=== PATIENT | female | born 1965 | race Caucasian/White ===

== ENCOUNTER 2020-07-31 15:40 | Outpatient (CLI) | payer OTHER, SELFPAY ==
--- NOTE | ~2020-07-31 | XR_ITS ---
EXAMINATION: XR chest 2V DATE: 07/31/2020 16:00 INDICATION: Shortness of breath. COVID-19 positive. TECHNIQUE: Frontal and lateral views of the chest were obtained. COMPARISON: None. FINDINGS: The chest demonstrates clear lungs without pneumonia, pleural effusion, or pneumothorax. Th e heart size is normal. There are prominent paracardial fat pads. IMPRESSION: 1. No acute cardiopulmonary disease. Reviewed, dictated and finalized at location A. E PRUNER
== END 2020-07-31 15:41 | disposition home or self-care (01) ==
LOC: CHSIMG 15:44
PROVIDERS: PCP Nurse Practitioner; Visit Provider Nurse Practitioner
DX: U07.1 COVID-19 (principal)
CPT/HCPCS: 71046

== ENCOUNTER 2021-02-16 16:22 | Emergency (ER) | payer OTHER, SELFPAY ==
--- NOTE | ~2021-02-16 | XR_ITS ---
EXAMINATION: XR wrist RT 2V DATE: 02/16/2021 17:04 INDICATION: Right wrist pain. TECHNIQUE: 2 views of right wrist were obtained. COMPARISON: None. FINDINGS: Bone alignment is normal. There is a bone fragment dorsal to the proximal carpal row. There is mild osteoarthritis of first carpometacarpal joint and second metacarpophalangeal joint. IMPRESSION: 1. Bone fragment dorsal to the proximal carpal row, which may be an age-indeterminate avulsion fractu re of dorsal pole of triquetrum. 2. Mild polyarticular osteoarthritis. Reviewed, dictated and finalized at location A. IMPRESSION: 1. Bone fragment dorsal to the proximal carpal row, which may be an age-indeter minate avulsion fracture of dorsal pole of triquetrum. 2. Mild polyarticular osteoarthritis.
--- NOTE | ~2021-02-16 | XR_ITS ---
EXAMINATION: XR wrist LT 2V DATE: 02/16/2021 17:04 INDICATION: Left wrist pain. TECHNIQUE: 2 views of left wrist were obtained. COMPARISON: None. FINDINGS: Bone alignment is normal. There is a bone fragment dorsal to the proximal carpal row. There is mild osteoarthritis of first carpometacarpal joint. IMPRESSION: 1. Bone fragment dorsal to the proximal carpal row which may be an age-indeterminate avulsion fractur e of dorsal pole of triquetrum. 2. Mild osteoarthritis of first carpometacarpal joint. Reviewed, dictated and finalized at location A. IMPRESSION: 1. Bone fragment dorsal to the proximal carpal row which may be an age-indeterm inate avulsion fracture of dorsal pole of triquetrum. 2. Mild osteoarthritis of first carpometacarpal joint.
--- NOTE | ~2021-02-16 | XR_ITS ---
EXAMINATION: XR elbow RT 2V DATE: 02/16/2021 17:03 INDICATION: Right elbow pain. TECHNIQUE: 2 views of right elbow were obtained. COMPARISON: None. FINDINGS: There is a fracture of radial head with up to 1 mm impaction of the lateral 40% of the blaine cular surface. Joint spaces are otherwise normal. There is an enthesophyte at medial humeral epicondy le. There is an elbow joint effusion. IMPRESSION: 1. Radial head fracture. 2. Elbow joint effusion. Reviewed, dictated and finalized at location A.
[2021-02-16 16:30] VITALS: BP 139/90; PULSE 105; RESP 17; TEMP 36.9; O2SAT 97
--- NOTE | 2021-02-16 17:40 | ED.FALL ---
HPI - Fall General Chief Complaint: Fall Stated Complaint: wrist(both)pain, R arm pain Source: patient Mode of arrival: ambulatory Limitations: no limitations History of Present Illness HPI Narrative: this is a 56-year-old female presents after she misstepped off a curb and fell on outstretched hands and fell on her knees causing an abrasion to the left knee but having pain and swelling the right wrist and elbow and left wrist. Has some pain that she rates about a 8/10 with decreased range of motion in the bilateral wrist and right elbow with point tenderness in her wrists and right elbow. Patient has good range of motion on her knees with no pain elicited with movement. Patient tripped did not lose consciousness. complaint: fall Onset (ago): hour(s) Fall from: standing Fall witnessed: no Place fall occurred: street Loss of consciousness: none Prolonged down time: no Symptoms prior to fall: none Context: tripped/slipped Related Data Home Medications Medication Instructions Recorded Confirmed atorvastatin 40 mg PO DAILY 02/16/21 02/16/21 lisinopril-hydrochlorothiazide 1 tablet PO DAILY 02/16/21 02/16/21 metformin 500 mg PO BID 02/16/21 02/16/21 metoprolol tartrate 50 mg PO DAILY 02/16/21 02/16/21 Allergies Allergy/AdvReac Type Severity Reaction Status Date / Time theophylline [From Theolair] Allergy Unknown Verified 02/16/21 16:38 Review of Systems Review of Systems: All systems reviewed & are unremarkable except as noted in HPI and below PMFSH Past Medical History Medical History Patient denies medical problems Exam Const: General: no acute distress and alert Orientation/consciousness: patient oriented x3 HENMT: Head: normal to inspection Eyes: Conjunctivae: conjunctivae normal Pupils: Equal, round and reactive pupils present Neck: Neck: normal visual inspection, no lymphadenopathy and no meningeal signs Chest: Chest palpation & inspection: normal inspection of the chest Resp: Effort & Inspection: normal respiratory effort Cardio: Rate: regular rate Rhythm: regular rhythm GI: Inspection: distended Auscultation: normal bowel sounds : General: Yes no CVA tenderness Back/Spine/Pelvis: Back: no CVA tenderness Skin: Other: abrasion left knee Neuro: General: patient oriented x3, moves all extremities, no meningeal signs and no focal motor deficits Extrem: Other: bilateral wrist pain with swelling has a strong brisk radial pulse bilaterally right wrist swollen with point tenderness and tenderness in the right elbow. Psych: Mental Status: mental status grossly normal Affect: normal affect and Anxious affect present Attitude: cooperative Course Course Emergency Course: Patient declined pain medication here in the ER, x-rays were reviewed with patient and advised patient to take medicine that was sent as a prescription to her pharmacy and a follow-up with primary care physician. Vital Signs Vital signs: Vital Signs Temperature 36.9 C 02/16/21 16:30 Pulse Rate 105 H 02/16/21 16:30 Respiratory Rate 17 02/16/21 16:30 Blood Pressure 139/90 02/16/21 16:30 Pulse Oximetry 97 02/16/21 16:30 Temperature 36.9 C 02/16/21 16:30 Pulse Rate 105 H 02/16/21 16:30 Respiratory Rate 17 02/16/21 16:30 Blood Pressure 139/90 02/16/21 16:30 Pulse Oximetry 97 02/16/21 16:30 Critical Care Time Critical Care Time Critical Care Time: No Discharge Plan Discharge Clinical Impression: Fracture of wrist Qualifiers: Encounter type: initial encounter Fracture type: closed Laterality: right Qualified Code(s): S62.101A - Fracture of unspecified carpal bone, right wrist, initial encounter for closed fracture Elbow fracture, right Qualifiers: Encounter type: initial encounter Fracture type: closed Qualified Code(s): S42.401A - Unspecified fracture of lower end of right humerus, initial encounter for closed fracture
--- NOTE | 2021-02-16 17:47 | PC.NURSE ---
FRACTURES FOUND TO RIGHT WRIST AND RIGHT ELBOW - LONG ARM POSTERIOR OCL APPLIED TO RIGHT ARM FOR FRACTURE TO RIGHT WRIST AND ELBOW, SLING APPLIED +CSM - BOTH DISTAL JOINTS IMMOBILIZED FRACTURE FOUND TO LEFT WRIST - THUMB SPLINT APPLIED +CSM PT TOLERATES WELL ALONSO CRUZ
[2021-02-16 18:06] VITALS: RESP 16
== END 2021-02-16 18:10 | disposition home or self-care (01) ==
PROVIDERS: Emergency Provider Emergency Medicine
DX: S62.101A Fracture of unspecified carpal bone, right wrist, initial encounter for closed fracture (principal); S42.401A Unspecified fracture of lower end of right humerus, initial encounter for closed fracture; W19.XXXA Unspecified fall, initial encounter
CPT/HCPCS: 29105; 29125; 73070; 73100; 99283; 99284; A4565; L3908

== ENCOUNTER 2021-02-22 13:16 | Outpatient (CLI) | payer OTHER, SELFPAY ==
--- NOTE | ~2021-02-22 | XR_ITS ---
EXAMINATION: XR elbow RT min 3V DATE: 02/22/2021 13:35 INDICATION: Follow-up radial head fracture. TECHNIQUE: Anteroposterior, two oblique and lateral views of the right elbow were obtained. COMPARISON: None. FINDINGS: The right elbow joint spaces are suboptimally profiled due to positioning of the elbow which is exter jose splinted in the flexed position. No significant interval change in minimal impaction of an intr a-articular fracture of the right radial head. No productive changes of healing yet apparent. No new fractures identified. Right elbow joint space is relatively preserved with decrease in size of a smal l right pleural effusion with minimal residual displacement of the anterior fat pad. IMPRESSION: 1. No significant change in a minimally impacted intra-articular fracture of the right radial head. Reviewed, dictated and finalized at location A. IMPRESSION: 1. No significant change in a minimally impacted intra-articular fracture of th e right radial head.
== END 2021-02-22 13:17 | disposition home or self-care (01) ==
LOC: ANHBWCIMG 13:17
PROVIDERS: Visit Provider Orthopaedic Surgery
DX: M25.521 Pain in right elbow (principal)
CPT/HCPCS: 73080

== ENCOUNTER 2021-03-08 12:02 | Outpatient (CLI) | payer OTHER, SELFPAY ==
--- NOTE | ~2021-03-08 | XR_ITS ---
XR elbow RT min 3V DATE: 03/08/2021 12:14 INDICATION: Radial head fracture TECHNIQUE: 4 views COMPARISON: 02/16/2021 and 02/22/2021 right elbow FINDINGS: No significant change of position of the mildly depressed fracture of the lateral aspect of the radial head. No other fracture or dislocation. IMPRESSION: No significant change Reviewed, dictated and finalized at location B. IMPRESSION: No significant change
== END 2021-03-08 12:03 | disposition home or self-care (01) ==
LOC: ANHBWCIMG 12:03
PROVIDERS: Visit Provider Orthopaedic Surgery
DX: M25.521 Pain in right elbow (principal)
CPT/HCPCS: 73080

== ENCOUNTER 2021-03-22 12:36 | Outpatient (CLI) | payer OTHER, SELFPAY ==
--- NOTE | ~2021-03-22 | XR_ITS ---
EXAMINATION: XR elbow RT min 3V DATE: 03/22/2021 12:50 INDICATION: Right elbow fracture follow-up TECHNIQUE: Anteroposterior, two oblique and lateral views of the right elbow were obtained. COMPARISON: 03/08/2021 and 02/16/2021 FINDINGS: No significant interval change in proximal 1.5 mm depression of an intra-articular fracture involving approximately 40% of the articular surface area of the right radial head. There is mild increasing s clerosis along the fracture line consistent with several healing. No other fractures identified. Mild osteoarthritis at the ulnotrochlear articulation. Right elbow joint effusion is present. Small enthe sophyte at the medial humeral epicondyle. IMPRESSION: 1. Interval healing of a mildly depressed intra-articular fracture of the right radial head. 2. Persistent right elbow joint effusion. Reviewed, dictated and finalized at location A.
== END 2021-03-22 12:37 | disposition home or self-care (01) ==
LOC: ANHBWCIMG 12:36
PROVIDERS: Visit Provider Orthopaedic Surgery
DX: M25.521 Pain in right elbow (principal); M25.421 Effusion, right elbow; Z87.81 Personal history of (healed) traumatic fracture
CPT/HCPCS: 73080

== ENCOUNTER 2022-03-22 08:09 | Outpatient (CLI) | payer OTHER, SELFPAY ==
--- NOTE | ~2022-03-22 | MM_ITS ---
EXAMINATION: MM screening frank BI w jo HISTORY: Screening mammogram TECHNIQUE: Craniocaudal and mediolateral oblique 3-D tomosynthesis images were obtained and synthetic 2-D images were generated. CAD analysis was submitted and interpreted. COMPARISON: No prior mammogram is available for comparison at this institution. BREAST PARENCHYMAL COMPOSITION: There are scattered areas of fibroglandular density. FINDINGS: There is no evidence of suspicious mass, calcification, or architectural distortion to sugg est malignancy in either breast. There has been no suspicious interval change. IMPRESSION: 1. No mammographic evidence of malignancy. 2. Recommend routine screening mammography in one year. BI-RADS Category 1: Negative Reviewed, dictated and finalized at location A.
== END 2022-03-22 08:10 | disposition home or self-care (01) ==
LOC: CHSIMG 08:10
PROVIDERS: PCP Nurse Practitioner; Visit Provider Nurse Practitioner
DX: Z12.31 Encounter for screening mammogram for malignant neoplasm of breast (principal)
CPT/HCPCS: 77063; 77067

== ENCOUNTER 2024-11-09 08:58 | Outpatient (CLI) | payer BC, SELFPAY ==
--- NOTE | ~2024-11-09 | MR_ITS ---
MRI of the lumbar spine Clinical History: Chronic back pain Technique: Axial T2-weighted images, and sagittal T1-weighted, T2-weighted, and T2 fat-sat images wer e acquired. Findings: There is no fracture in the lumbar spine. There is 3-4 mm retrolisthesis of L4 over L5. No suspicious bone marrow signal abnormality seen. At L1-L2, there is no disc bulge or herniation. No spinal canal stenosis or neural foraminal narrowin g. At L2-L3, there is moderate degenerative distended. There is diffuse disc bulge with central to left paracentral to left foraminal region, with mild to moderate facet arthropathy. No central canal steno sis. There is moderate left neural foraminal narrowing. Right neural foramen preserved. At L3-L4, there is moderate degenerative disc narrowing. There is diffuse disc bulge/protrusion, with moderate facet arthropathy. There is moderate central canal stenosis/thecal sac compression. There i s moderate left neural foraminal narrowing. Right neural foramen preserved. At L4-L5, there is severe degenerative disc narrowing. There is diffuse disc bulge with superimposed disc extrusion centrally, extending inferiorly. There is mild to moderate thecal sac compression. The re is minimal bilateral neural foraminal narrowing. At L5-S1, there is severe degenerative disc narrowing. There is large central to left paracentral dis c extrusion, resulting in severe spinal canal stenosis/thecal sac compression. There is moderate to s evere bilateral neural foraminal narrowing. Probable impingement of descending S1-S2 level nerve root s by the large disc extrusion. Paravertebral soft tissues are unremarkable. Impression: Large central to left paracentral disc extrusion L5-S1, resulting in severe spinal canal stenosis/the denita sac compression and probable impingement of the descending S1-S2 level nerve roots bilaterally. Central disc extrusion at L4-L5 with underlying disc bulge, resulting in mild to moderate thecal sac compression, with minimal bilateral neural foraminal narrowing. Multifactorial moderate thecal sac compression L3-L4 with left neural foraminal narrowing, as detaile d above. 3-4 mm retrolisthesis of L4 over L5. Reviewed, dictated and finalized at location M. Impression: Large central to left paracentral disc extrusion L5-S1, resulting in severe spi nal canal stenosis/thecal sac compression and probable impingement of the desce nding S1-S2 level nerve roots bilaterally. Central disc extrusion at L4-L5 with underlying disc bulge, resulting in mild to moderate thecal sac compression, with minimal bilateral neural foraminal janet rowing. Multifactorial moderate thecal sac compression L3-L4 with left neural foraminal narrowing, as detailed above. 3-4 mm retrolisthesis of L4 over L5.
--- OUTSIDE RECORDS SUMMARY | 2024-11-09 09:02 | XMS_ITS ---
Author Organization Unknown Address [address] [place] [address] [phone] Phone Care Team Providers Care Brakes Inspector Name Role Phone PORFIRIO Talavera Attending Unavailable NO PCP Primary Unavailable Immunization Immunization Date Status Additional Notes Code Code System zoster recombinant 09/18/2022 Completed 187 CVX Social History Type Status Start Date End Date Code Code Syst em Sex Female Hospital Discharge Instructions Should you have any questions prior to discharge, please contact a member of your healthcare team. If you have left the hospital and have any questions, please contact your primary care physician. Reason For Referral No Data Found Plan of Treatment Colonoscopy 12/12/2024 Encounters Encounter Diagnosis Start Date Code Code Sys tem Encounter for screening for malignant neoplasm of colo n 09/25/2024 SNOMED-CT Personal Care Team Section Performer Name Performer Role Active Date Inactive Da te
--- OUTSIDE RECORDS SUMMARY | 2024-11-09 09:02 | XMS_ITS | Clinical Summary ---
Author Organization [facility] Address [address] [place] [address] Care Team Providers Care Director Post Name Role Phone Talha Meyers RN Primary Care Provider Unavail able Allergies Active Allergy Reactions Criticality Noted Date Comments Theophylline Hallucinations 03/22/2019 Medications glipiZIDE 10 MG tablet Take 10 mg by mouth 2 (two) times daily before meals. Active lisinopril-hydr ochlorothiazide 20-12.5 MG tablet Take 1 tablet by mouth daily. Active metoprolol tartrate 50 MG tablet Take by mouth 2 (two) times daily. Active metFORMIN 500 MG tablet Take 500 mg by mouth 2 (two) times daily with meals. Active simvastatin 20 MG tablet Take 20 mg by mouth nightly at bedtime. Active Social History Tobacco Use Types Packs/Day Years Used Date Smoking Tobacco: Former Smokeless Tobacco: Never Alcohol Use Standard Drinks/Week Comments Yes 0 (1 standard drink = 0.6 oz pur e alcohol) Comments No Sex and Gender Information Value Date Recorded Sex Assigned at Not on file Legal Sex Female 4:00 PM CDT Gender Identity Not on file Sexual Orientation Not on file Last Filed Vital Signs Vital Sign Reading Time Taken Comments Blood Pressure 127/65 03/22/2019 4:13 PM CDT Pulse 108 03/22/2019 4:13 PM CDT Temperature 36.2 C (97.1 F) 03/22/2019 4:13 PM CDT Respiratory Rate 16 03/22/2019 4:13 PM CDT Oxygen Saturation 97% 03/22/2019 4:13 PM CDT Inhaled Oxygen Concentration - - Weight 83.9 kg (185 lb) 03/22/2019 4:13 PM CDT Height 170.2 cm (5' 7 ) 03/22/2019 4:13 PM CDT Body Mass Index 28.98 03/22/2019 4:13 PM CDT Plan of Treatment Health Maintenance Due Date Last Done Comments Cervical Cancer Screening Pa p Smear (Age 30 to 64) Every 3 Years 1963 Colorectal Cancer Screening Colonoscopy (10 Years) 1963 Annual Physical 1966 Hepatitis C 1981 DTaP, Tdap and Td Vaccines ( 1 - Tdap) 1982 Cervical Cancer Screening Pa p with HPV Testing (Age 30 to 64) Every 5 Years 1993 Cervical Cancer Screening with HPV 1993 Mammogram Screening 2003 Zoster Vaccines (1 of 2) 2013 COVID-19 Vaccine (2023-2 5 season) 2024 Influenza Adult (#1) 2024 RSV Immunization or 60+ Years (1 - 1-dose 75+ series) 2038 Meningococcal B Vaccine Aged Out No l onger eligible based on patient's age to complete this topic Meningococcal Vaccine Aged Out No ricki dallas eligible based on patient's age to complete this topic Pneumococcal Vaccine: Pediat rics (0 to 5 Years) and At-Risk Patients (6 to 64 Years) Aged Out No longer eligible b ased on patient's age to complete this topic RSV Immunizations Under 20 Months Aged Out No longer eligible based on patient's age to complete this topic Insurance [employer] [facility] [place] [address] [address] [address] [place] [address] Care Teams Director Post Relationship Specialty Start Date End Date Talha Meyers, RN PCP - General REGISTERED NURSE 03/22/19
== END 2024-11-09 08:59 | disposition home or self-care (01) ==
PROVIDERS: PCP Nurse Practitioner
DX: M54.40 Lumbago with sciatica, unspecified side (principal); M48.07 Spinal stenosis, lumbosacral region; M51.369 Other intervertebral disc degeneration, lumbar region without mention of lumbar back pain or lower extremity pain; M43.16 Spondylolisthesis, lumbar region
CPT/HCPCS: 72148

== ENCOUNTER 2024-12-16 11:35 | Outpatient (CLI) | payer BC, SELFPAY ==
--- NOTE | 2024-12-16 11:42 | ECG_ITS ---
Test Date: 2024-12-16 11:56:05 Measurements Intervals Shelby Rate: 73 P: 56 MA: 152 QRS: 50 QRSD: 126 T: 58 QT: 428 QTc: 474 Interpretive Statements SINUS RHYTHM LEFT BUNDLE BRANCH BLOCK ABNORMAL ECG No previous ECG available for comparison Electronically Signed On 12-16-2024 11:53:44 CDT by Steve Butcher D.O.
--- OUTSIDE RECORDS SUMMARY | 2024-12-16 13:23 | XMS_ITS ---
Author Organization Unknown Address [address] [place] [address] [phone] Phone Care Team Providers Care English Lecturer Name Role Phone PORFIRIO Talavera Attending Unavailable [...] physician. Reason For Referral No Data Found Allergies and Adverse Reactions Allergy Substance Reaction Severity Start Date Concern Status Co de Code System THEOPHYLLINE ANXIETY (SNOMED-CT: null) Active 35126 RxNorm HYDROCODONE NAUSEA (SNOMED-CT: null) Active 5489 RxNorm ADHESIVE RED, SWELLING, BLISTER (SNOMED-CT: null) Active Plan of Treatment No Data Found Encounters Encounter Diagnosis Start Date Code Code Sys tem Encounter for screening for malignant neoplasm of colo n 09/25/2024 SNOMED-CT Personal Care Team Section Performer Name Performer Role Active Date Inactive Da te
--- OUTSIDE RECORDS SUMMARY | 2024-12-16 13:23 | XMS_ITS | Clinical Summary ---
Author Organization [facility] Address [address] [place] [address] Care Team Providers Care Prenatal Genetic Counselor Name Role Phone Talha Meyers RN Primary [...] Screening with HPV 1993 Mammogram Screening 2003 Pneumococcal Vaccine: 50+ Ye ars (1 of 1 - PCV) 2013 Zoster Vaccines (1 of 2) 2013 COVID-19 Vaccine ( - 2023-2 5 season) 2024 RSV Immunization or 60+ Years (1 [...] this topic Insurance [employer] [place] [address] [place] [address] [place] [address] Care Teams Prenatal Genetic Counselor Relationship Specialty Start Date End Date Talha Meyers, RN PCP - General REGISTERED NURSE 03/22/19
== END 2024-12-16 11:36 | disposition home or self-care (01) ==
LOC: CHSLAB 11:37 → CHSCARD 11:40
DX: R00.2 Palpitations (principal); I44.7 Left bundle-branch block, unspecified; R94.31 Abnormal electrocardiogram [ECG] [EKG]
CPT/HCPCS: 93005

== ENCOUNTER 2024-12-20 12:50 | Outpatient (CLI) | payer BC, SELFPAY ==
--- NOTE | ~2024-12-20 | MM_ITS ---
EXAMINATION: MM screening frank BI w jo HISTORY: Screening TECHNIQUE: Craniocaudal and mediolateral oblique 3-D tomosynthesis images were obtained and synthetic 2-D images were generated. CAD analysis was submitted and interpreted. COMPARISON: 03/22/2022 BREAST PARENCHYMAL COMPOSITION: Not dense: There are scattered areas of fibroglandular density. FINDINGS: There is no evidence of suspicious mass, calcification, or architectural distortion to sugg est malignancy in either breast. There has been no suspicious interval change. IMPRESSION: 1. No mammographic evidence of malignancy. 2. Recommend routine screening mammography in one year. BI-RADS Category 1: Negative Reviewed, dictated and finalized at location A.
--- OUTSIDE RECORDS SUMMARY | 2024-12-20 12:54 | XMS_ITS ---
Author Organization Unknown Address [address] [place] [phone] Phone Care Team Providers Care Straight Knife Cutter Machine Name Role Phone PORFIRIO Talavera Attending Unavailable [...] Code System THEOPHYLLINE ANXIETY (SNOMED-CT: null) Active 50750 RxNorm HYDROCODONE NAUSEA (SNOMED-CT: null) Active 5489 RxNorm ADHESIVE RED, SWELLING, BLISTER (SNOMED-CT: null) Active Plan of Treatment No Data Found Encounters Encounter Diagnosis Start Date Code Code Sys tem Encounter for screening for malignant neoplasm of colo n 09/25/2024 SNOMED-CT Personal Care Team Section Performer Name Performer Role Active Date Inactive Da te
--- OUTSIDE RECORDS SUMMARY | 2024-12-20 12:54 | XMS_ITS | Clinical Summary ---
Author Organization [facility] Address [address] [place] [address] Care Team Providers Care Baker Chef Name Role Phone Talha Meyers RN Primary [...] topic Insurance [employer] [place] [address] [place] [address] [place] [address] Care Teams Baker Chef Relationship Specialty Start Date End Date Talha Meyers, RN PCP - General REGISTERED NURSE 03/22/19
== END 2024-12-20 12:51 | disposition home or self-care (01) ==
LOC: CHSIMG 12:51
DX: Z12.31 Encounter for screening mammogram for malignant neoplasm of breast (principal)
CPT/HCPCS: 77063; 77067

== ENCOUNTER 2024-12-25 09:10 | Outpatient (CLI) | payer BC, SELFPAY ==
--- OUTSIDE RECORDS SUMMARY | 2024-12-25 09:48 | XMS_ITS | Clinical Summary ---
Author Organization [facility] Address [address] [place] [address] Care Team Providers Care Bindery Machine Feeder Offbearer Name Role Phone Talha Meyers RN Primary [...] topic Insurance [employer] [place] [place] [address] [place] [address] Care Teams Bindery Machine Feeder Offbearer Relationship Specialty Start Date End Date Talha Meyers, RN PCP - General REGISTERED NURSE 03/22/19
--- NOTE | 2024-12-30 09:05 | WPDHOLTEREM ---
Holter/Event Monitor Holter/Event Monitor Date of procedure: 12/25/24 Holter/Event Procedure: 48 Hr Holter Monitor Indications: Palpitations Conclusion: 1. 48 hour holter monitor on 12/25/24. 2. Predominant rhythm is sinus rhythm. HR range 60-122 bpm; average HR 84 bpm. 3. There are 24 premature supraventricular complexes and 3 supraventricular couplets. There are 2 episodes of supraventricular tachycardia with fastest at 156 bpm and longest lasting 8 beats. 4. There are 759 premature ventricular complexes and 1 ventricular couplet. No ventricular tachycardia. 5. Underlying bundle branch block. No significant pauses greater than 2 seconds. 6. Patient reports 2 episodes of symptoms of skipped beats and shortness of breath which demonstrate sinu rhythm, HR range 75-87 bpm
== END 2024-12-25 09:11 | disposition home or self-care (01) ==
LOC: CHSCARD 09:15
DX: R00.2 Palpitations (principal)
CPT/HCPCS: 93225; 93226

== ENCOUNTER 2025-02-14 07:54 | Outpatient (CLI) | payer BC, SELFPAY ==
--- OUTSIDE RECORDS SUMMARY | 2025-02-14 07:57 | XMS_ITS ---
Author Organization Unknown Address [address] [place] [address] [phone] Phone Care Team Providers Care Emergency Room Technician Name Role Phone PORFIRIO Talavera Attending Unavailable [...] Code System THEOPHYLLINE ANXIETY (SNOMED-CT: null) Active 06451 RxNorm HYDROCODONE NAUSEA (SNOMED-CT: null) Active 5489 RxNorm ADHESIVE RED, SWELLING, BLISTER (SNOMED-CT: null) Active Plan of Treatment No Data Found Encounters Encounter Diagnosis Start Date Code Code Sys tem Encounter for screening for malignant neoplasm of colo n 09/25/2024 SNOMED-CT Personal Care Team Section
--- NOTE | 2025-02-14 07:58 | ECHO_ITS ---
Patient Info Name: Ramona Willett Age: 60 years : 1965 Gender: Female Ht: 67 in Wt: 172 lbs BSA: 1.94 m2 HR: 77 bpm BP: 126 / 90 mmHg Technical Quality: Fair Exam Date: 02/14/2025 8:17 AM Patient Status: O Admit Date: 02/14/2025 Exam Type: CA echo doppler color flow Complete two-dimensional, color flow and Doppler transthoracic echocardiogram is performed. Strain analysis performed. Personnel Technician: Teagan Schwarz Attending Provider: Steve Butcher DO Summary 1. Complete two-dimensional, color flow and Doppler transthoracic echocardiogram is performed. 2. Left ventricular chamber dimension is normal. 3. Left ventricular systolic function is normal, estimated at 55-60. 4. The left ventricular diastolic function is grade I diastolic dysfunction. 5. Global longitudinal strain is abnormal at -12.7%. 6. E/e' 11 is mildly elevated. 7. There is trace tricuspid valve regurgitation. 8. No pulmonary hypertension, estimated pulmonary arterial systolic pressure is 23 mmHg. 9. There is trace pulmonic regurgitation. Left Ventricle E/e' 11 is mildly elevated. Left ventricular chamber dimension is normal. Left ventricular systolic function is normal, estimated at 55-60. The left ventricular diastolic function is grade I diastolic dysfunction. Global longitudinal strain is abnormal at -12.7%. Right Ventricle Right ventricular chamber dimension is normal. Right ventricular systolic function is normal. Left Atria Left atrial chamber dimension is normal. Right Atria Right atrial chamber dimension is normal. Aortic Valve The aortic valve is trileaflet. There is no aortic valve stenosis. There is no aortic valve regurgitation. Pulmonic Valve There is trace pulmonic regurgitation. Mitral Valve There is no mitral valve stenosis. There is no mitral valve regurgitation. Tricuspid Valve There is trace tricuspid valve regurgitation. No pulmonary hypertension, estimated pulmonary arterial systolic pressure is 23 mmHg. Pericardium/Pleural There is no pericardial effusion. Inferior Vena Cava Normal inferior vena cava with >50% collapse upon inspiration consistent with normal right atrial pressure, 5 mmHg. Aorta The aortic root size at the sinus of Valsalva is normal. Left Ventricular Outflow Tract Name Value Normal LVOT 2D LVOT Diameter 1.9 cm LVOT Doppler LVOT Peak Velocity 95 cm/s LVOT Peak Gradient 4 mmHg LVOT Mean Gradient 2 mmHg LVOT VTI 20 cm LVOT VTI/AV VTI Ratio 0.8 LVOT Stroke Volume 58 ml LVOT CO 4.6 l/min LVOT CI 2.4 l/min/m2 Pulmonic Valve Name Value Normal RVOT Doppler RVOT Peak Velocity 67 cm/s RVOT Peak Gradient 2 mmHg PV Doppler PV Peak Velocity 83 cm/s PV Peak Gradient 3 mmHg Mitral Valve Name Value Normal MV Diastolic Function MV E Peak Velocity 69 cm/s MV A Peak Velocity 125 cm/s MV E/A 0.6 MV Decel Time (PW) 220 ms Tricuspid Valve Name Value Normal TV Regurgitation Doppler TR Peak Velocity 211 cm/s TR Peak Gradient 18 mmHg Estimated PAP/RSVP RA Pressure 5 mmHg <=5 PA Systolic Pressure 23 mmHg <36 RV Systolic Pressure 23 mmHg <36 Aorta Name Value Normal Ascending Aorta Ao Root Diameter (MM) 3.0 cm Ao Root Diam Index (MM) 1.5 cm/m2 Aortic Valve Name Value Normal AV Doppler AV Peak Velocity 117 cm/s AV Peak Gradient 5 mmHg AV Mean Gradient 4 mmHg AV VTI 24 cm AV Area (Cont Eq VTI) 2.4 cm2 >=3.0 AV Area (Cont Eq Ko) 2.4 cm2 AV DI (Ko) 0.82 AV Regurgitation 2D LVOT Area 2.9 cm2 Ventricles Name Value Normal LV Dimensions 2D/MM IVS Diastolic Thickness (2D) 0.9 cm 0.6-1.0 IVS Diastole Thickness (MM) 1.1 cm 0.6-0.9 LVID Diastole (2D) 5.0 cm 3.8-5.2 LVID Diastole (MM) 5.3 cm 3.8-5.2 LVIW Diastolic Thickness (2D) 1.0 cm 0.6-0.9 LVIW Diastolic Thickness (MM) 1.0 cm 0.6-0.9 LVID Systole (2D) 3.8 cm 2.2-3.5 LVID Systole (MM) 3.7 cm 2.2-3.5 LVOT Diameter 1.9 cm LV Mass (2D Cubed) 176.80 g 67.00-162.00 LV Mass Index (2D Cubed) 91 g/m2 43-95 Relative Wall Thickness (2D) 0.41 <=0.42 LV Mass (MM Cubed) 206.96 g 67.00-162.00 LV Mass Index (MM Cubed) 107 g/m2 43-95 Relative Wall Thickness (MM) 0.36 LV Fractional Shortening/Ejection Fraction 2D/MM LV Fractional Shortening (2D) 25 % 27-45 LV Fractional Shortening (MM) 31 % 27-45 LV EF (MM Teichholz) 58 % LV EF (2D Teichholz) 49 % LV Diastolic Volume (4C MOD) 86 ml LV EF (4C MOD) 60 % LV Diastolic Volume (2C MOD) 70 ml LV EF (2C MOD) 42 % LV Diastolic Volume (BP MOD) 77 ml 46-106 LV Diastolic Volume Index (BP MOD) 40 ml/m2 29-61 LV Systolic Volume (BP MOD) 38 ml 14-42 LV Systolic Volume Index (BP MOD) 20 ml/m2 8-24 LV EF (BP MOD) 51 % 54-74 LV Diastolic Length (4C) 8.4 cm LV Systolic Length (4C) 7.7 cm LV Stroke Volume (4C MOD) 52 ml Atria Name Value Normal LA Dimensions LA Dimension (MM) 3.2 cm 2.7-3.8 LA Volume (4C A-L) 36 ml LA Volume (BP A-L) 46 ml RA Dimensions RA Systolic Major Huddleston Length (4C) 4.6 cm 2.2-2.8 RA Area (4C) 12.0 cm2 <=18.0 EchoPAC Name Value Normal AutoEF LVCO_BiP_Q (Ztek1BFL) 4.3 l/min LVEF_BiP_Q (Uthy1IMD) 53 % LVSV_BiP_Q (Hnkx1GHF) 54 ml LVVED_BiP_Q (Pzle6GNA) 103 ml LVVES_BiP_Q (Zwfx4TPB) 49 ml HR_4Ch_Q (Cpdk3JEB) 85 bpm LVCO_4Ch_Q (Icfu7XOI) 4.1 l/min LVEF_4Ch_Q (Mdij7UGC) 57 % LVLd_4Ch_Q (Kini2KEY) 8.5 cm LVLs_4Ch_Q (Fxlu3WWF) 7.7 cm LVSV_4Ch_Q (Cbxz2OTS) 49 ml LVVED_4Ch_Q (Ydjp9YBA) 86 ml LVVES_4Ch_Q (Caog0ONF) 37 ml HR_2Ch_Q (Bpiz3LVS) 77 bpm LVCO_2Ch_Q (Kpor9DEP) 4.4 l/min LVEF_2Ch_Q (Bqul8GQU) 46 % LVLd_2Ch_Q (Hvpk2MBW) 8.3 cm LVLs_2Ch_Q (Najm1DSI) 7.3 cm LVSV_2Ch_Q (Idjr2HQC) 57 ml LVVED_2Ch_Q (Fpim9MDO) 123 ml LVVES_2Ch_Q (Lwqj3UBW) 66 ml EMERY LV Apical Anterior Longitudinal Strain (EMERY) -7.0 % LV Apical Anteroseptal Longitudinal Strain (EMERY) -15.8 % LV Apical Inferior Longitudinal Strain (EMERY) -16.2 % LV Apical Lateral Longitudinal Strain (EMERY) -17.5 % LV Apical Posterior Longitudinal Strain (EMERY) -6.6 % LV Apical Septal Longitudinal Strain (EMERY) -18.8 % AV Closure (EMERY) 395 ms LV Basal Anterior Longitudinal Strain (EMERY) -17.2 % LV Basal Anteroseptal Longitudinal Strain (EMERY) -14.2 % LV Basal Inferior Longitudinal Strain (EMERY) -14.6 % LV Basal Anterolateral Longitudinal Strain (EMERY) -16.4 % LV Basal Inferolateral Longitudinal Strain (EMERY) -13.1 % LV Basal Inferoseptal Longitudinal Strain (EMERY) -7.3 % LV Global Longitudinal Strain (2C EMERY) -13.4 % LV Global Longitudinal Strain (4C EMERY) -12.0 % LV Global Longitudinal Strain (APLAX EMERY) -12.9 % LV Global Longitudinal Strain (EMERY) -12.7 % LV Mid Anterior Longitudinal Strain (EMERY) -10.0 % LV Mid Anteroseptal Longitudinal Strain (EMERY) -15.0 % LV Mid Inferior Longitudinal Strain (EMERY) -15.1 % LV Mid Anterolateral Longitudinal Strain (EMERY) -14.8 % LV Mid Inferolateral Longitudinal Strain (EMERY) -15.8 % LV Mid Inferoseptal Longitudinal Strain (EMERY) 3.4 % Report Signatures
== END 2025-02-14 07:55 | disposition home or self-care (01) ==
PROVIDERS: Visit Provider Internal Medicine Cardiovascular Disease
DX: I50.30 Unspecified diastolic (congestive) heart failure (principal); I47.10 Supraventricular tachycardia, unspecified
CPT/HCPCS: 93306

== ENCOUNTER 2025-06-20 12:31 | Outpatient (CLI) | payer BC, SELFPAY ==
--- NOTE | ~2025-06-20 | US_ITS ---
EXAMINATION: US pelvic complete w TV INDICATION: Vaginal spotting. Comparison:No prior studies for comparison. TECHNIQUE: Multiple transabdominal and endovaginal sonographic images of the pelvis performed. FINDINGS: The uterus measures 8 x 4.3 x 2.4 cm. The endometrial complex measures 5 mm. There is fluid in the endometrium. The right ovary measures 2.2 x 2 x 2.4 cm. In the right adnexa there is a largely cystic mass containing a soft tissue component history 3.6 x 4.1 x 2.9 cm. There is a nodular soft tissue component containing calcification. The left ovary is not visualized. There is no free fluid in the pelvis. There are no abnormal masses seen on either side. IMPRESSION: 1. Largely cystic right adnexal mass measuring 4.1 cm containing peripheral soft tissue components one of which shows internal calcifications. Differential diagnosis includes mature cystic teratoma, cystadenoma, endometrioma with mural nodule and borderline or early epithelial ovarian neoplasm. Reviewed, dictated and finalized at location O. IMPRESSION: 1. Largely cystic right adnexal mass measuring 4.1 cm containing peripheral sof t tissue components one of which shows internal calcifications. Differential di agnosis includes mature cystic teratoma, cystadenoma, endometrioma with mural n odule and borderline or early epithelial ovarian neoplasm.
== END 2025-06-20 12:32 | disposition home or self-care (01) ==
PROVIDERS: PCP Nurse Practitioner Family; Visit Provider Nurse Practitioner Family
DX: N95.0 Postmenopausal bleeding (principal); N85.8 Other specified noninflammatory disorders of uterus
CPT/HCPCS: 76830; 76856

== ENCOUNTER 2025-07-29 11:49 | Outpatient (CLI) | payer BC, SELFPAY ==
[2025-07-29 12:12] LABS: Hematocrit 40.2 % (37.0-47.0); Hemoglobin 13.2 g/dL (12.0-15.0); Immature Granulocyte Percent A 0.4 % (0-0.5); Lymphocytes Absolute Auto 1.26 K/mm3 (0.9-3.2); Mean Corpuscular HGB Conc 32.8 g/dl (32-36); Mean Corpuscular Hemoglobin 27.4 pg (26-34); Mean Corpuscular Volume 83.4 fl (80-100); Nucleated Red Blood Cells Absolute Auto 0.000 K/mm3 (0.0-0.012); Nucleated Red Blood Cells Perc 0.0 % (0.0-0.2); Platelet Count Result 287 k/mm3 (150-375); Red Blood Count 4.82 M/mm3 (4.2-5.4); White Blood Count 4.7 K/mm3 (4.5-10.0)
[2025-07-29 12:24] LABS: Anion Gap 6 mmol/L (4-12); Blood Urea Nitrogen 11 mg/dL (7-17); Calcium 9.3 mg/dL (8.4-10.2); Carbon Dioxide 28 mmol/L (22-30); Chloride 103 mmol/L (98-107); Estimated Glomerular Filt Rate > 60; Glucose 278 mg/dL (65-110); Potassium 4.1 mmol/L (3.4-5.0); Sodium 137 mmol/L (137-145)
--- OUTSIDE RECORDS SUMMARY | 2025-07-29 12:47 | XMS_ITS | Clinical Summary ---
Author Organization [facility] Address [address] [place] [address] Care Team Providers Care Green Chain Off Bearer Name Role Phone Talha Meyers RN Primary [...] 4:13 PM CDT Height 170.2 cm (5' 7) 03/22/2019 4:13 PM CDT Body Mass Index [...] of 2) 2013 COVID-19 Vaccine ( - 2024-2 6 season) 2025 Influenza Adult (#1) 2025 RSV Immunization or 60+ Years (1 - 1-dose 75+ series) 2038 Hepatitis A Vaccines Aged Out No long er eligible based on patient's age to complete this topic Meningococcal B Vaccine Aged Out No l onger eligible based on patient's age to complete this topic Meningococcal Vaccine Aged Out No ricki dallas eligible based on patient's age to complete this topic RSV Immunizations Under 20 Months Aged Out No longer eligible based on patient's age to complete this topic Insurance [employer] [facility] [place] [address] Care Teams Green Chain Off Bearer Relationship Specialty Start Date End Date Talha Meyers, RN PCP - General REGISTERED NURSE 03/22/19
== END 2025-07-29 11:50 | disposition home or self-care (01) ==
LOC: ANHLAB 11:50
PROVIDERS: PCP Nurse Practitioner Family; Visit Provider Obstetrics & Gynecology
DX: Z01.818 Encounter for other preprocedural examination (principal); N95.0 Postmenopausal bleeding; E11.9 Type 2 diabetes mellitus without complications
CPT/HCPCS: 36415; 80048; 85025; 86850; 86900; 86901

== ENCOUNTER 2025-07-31 02:34 | Day surgery (SDC) | payer BC, SELFPAY ==
--- NOTE | 2025-07-22 11:03 | PC.NURSE ---
STARTED INTERVIEW, PT AT WORK, WILL CALL BACK WHEN AVAILABLE
--- NOTE | 2025-07-22 14:55 | PC.NURSE ---
[facility] has started construction of its new state of the art ER which will open Spring 2026. With this, we anticipate parking may be a challenge for some our surgical patients and families. Parking spaces are limited but are available for all Surgical, obstetrics, and ER patients sharing this lot. If you arrive and find you are having a hard time finding a parking space, please note that we understand the challenges, please drive around the hospital and park near Hospital Entrance 1. When you enter this entrance, you can ask a volunteer to direct or take you back to the surgical waiting area to check in. We appreciate everyone?s understanding of these expected challenges while we build for your future. Report to the Outpatient Waiting Room, entrance under the green pavilion located off [address], at time 0600_ on date _07/31/25_. Planned Procedure Time: _0730_.? Time changes happen often and if your time is changed the preop area will call you the afternoon before. - You and your visitor will be asked to self-screen and do not enter if you have any COVID symptoms. Please call surgeon if you need to reschedule. - A mask is optional within the hospital at this time. Patients may have clear liquids (water, carbonated beverages, clear teas, apple juice) until 3 hours prior to surgery with a maximum of 20 ounces. - No food from midnight until time of surgery and no smoking, or chewing tobacco (or any form of nicotine). No chewing gum, candy or mints. Take only the following medications with a SIP of water on the morning of surgery: ____PAIN AND NAUSEA MEDICATION IF NEEDED DO NOT STOP ANY OF YOUR OTHER PRESCRIPTION MEDICATIONS PRIOR TO SURGERY EXCEPT THE FOLLOWING Hold all vitamins and supplements for 3 days per anesthesiologist. Medications to discontinue per physician HOLDING MELOXICAM FOR 5 DAYS, ASA FOR 1 WEEK , OZEMPIC FOR 14 DAYS Date to take last dose Please no make-up, nail serbian, hairspray, perfume, deodorant, or body powder the day of surgery.? No jewelry (including any body piercings) or valuables the day of surgery, leave them at home.? Please take a shower or bath the night before, or the morning of, surgery with an antibacterial soap.? Wear comfortable, loose fitting clothing.? Children are encouraged to wear pajamas. - Jewelry must be removed prior to entering the operating room.? Rings and piercings that are not removed may be cut off. - The hospital will not accept responsibility for valuables.? - Please leave all valuables, including medications, at home the day of surgery. If you are going home after surgery, a licensed milk pickup driver must drive you home.? - NO public transportation without another adult if you receive anesthesia. - We recommend that an adult stay with you for 24 hours following discharge. - We also recommend that you do not drive, make important decision, drink alcoholic beverages, or take any drugs that were not prescribed by your health care provider for at least 24 hours after your discharge time. For Pediatric surgeries, we recommend two adults accompany the child home. Follow any additional instructions given to you from your surgeon. Telephone instructions given to _PATIENT_and asked if any additional questions and then verbalized understanding. Patient advised to call surgeon office or pre surgery nurse liaison [phone] if any additional questions.
--- NOTE | 2025-07-29 07:10 | PM.IMHP2 ---
H&P: HPI History of Present Illness Date/Time: 07/29/25 07:10 Chief Complaint: Postmenopausal bleeding and high grade squamous intraepithelial lesion Narrative: 60-year-old female admitted for hysterectomy and bilateral salpingo-oophorectomy secondary to postmenopausal bleeding with benign endometrial findings and an abnormal Pap with DORIAN 2-3 with colposcopic directed biopsies. Risks and benefits of the procedure reviewed including not exclusive of , aspiration pneumonia, bleeding, transfusion, perforation injury to bowel, bladder, ureters, or other internal organs with need for open laparotomy. She received the ACOG handout entitled hysterectomy. She had all questions answered and asked to proceed Review of Systems Review of Systems: All systems reviewed & are unremarkable except as noted in HPI and below PMFSH Past Medical History Medical History Right wrist sprain Claustrophobia Diabetes ZOË (obstructive sleep apnea) History of adverse reaction to anesthesia Avulsion fracture of left wrist Fracture of radial head, right, closed Patient denies medical problems Surgical History Surgical History History of abdominoplasty History of appendectomy History of tonsillectomy Family History Family History Other Arthritis Asthma Diabetes mellitus Heart disease Hypertension Social History Social History Smoking packs per day: 0.5 Smoking cigarettes per day: 10.0 Years smoked: 20 Smoking pack-years: 10.00 Smoking status: Former smoker Tobacco type: cigarettes Smoking end date: 03/28/97 Additional smoking assessment comments: QUIT 1996 Alcohol intake: current Alcohol use details: 2 PER YEAR Substance use: never Substance use type: does not use Lack of Transportation: No Lack of Food: Never True Concerned About Future Housing: No Difficulty Paying Gas/Electric Bills: No Difficulty Paying for Meds: No Currently Unemployed: No Education: Trade/Vocational Certificate Difficulty w/ Childcare or Family Care: No Living arrangements: alone Gender identity (if verbalized by the patient): Female Meds Home Medications and Allergies Home Medications ?Medication ?Instructions ?Recorded ?Confirmed ?Type acetaminophen 300 mg-codeine 15 mg 1 tablet PO TID PRN pain #14 tabs 02/16/21 07/22/25 Rx tablet lisinopril 20 1 tablet PO DAILY 02/16/21 07/22/25 History mg-hydrochlorothiazide 12.5 mg tablet metformin 500 mg tablet,extended 500 mg PO BID 02/16/21 07/22/25 History release 24 hr glipizide 10 mg tablet, extended 10 mg PO DAILY 11/18/24 07/22/25 History release 24 hr albuterol 90 mcg/actuation aerosol 90 mcg inhalation PRN PRN 01/09/25 07/22/25 History inhaler shortness of breath aspirin 81 mg tablet 81 mg PO DAILY 01/09/25 07/22/25 History atorvastatin 40 mg tablet 40 mg PO QHS 01/09/25 07/22/25 History fluconazole 40 mg/mL oral 50 mg PO PRN PRN SHINGLE OUTBREAK 01/09/25 07/22/25 History suspension (Diflucan) fluticasone furoate 27.5 2 spray intranasal DAILY 01/09/25 07/22/25 History mcg/actuation nasal spray,suspension metoprolol tartrate 50 mg tablet 50 mg PO QHS 01/09/25 07/22/25 History ondansetron HCl 8 mg tablet 8 mg PO Q12H 01/09/25 07/22/25 History valacyclovir 1 gram tablet 1,000 mg PO Q8H PRN BREAKOUT 01/09/25 07/22/25 History meloxicam 15 mg tablet See Rx Instructions .Route 01/15/25 07/22/25 Rx .COMPLEX #30 tabs lisinopril 10 mg tablet 10 mg PO HS 07/22/25 07/22/25 History semaglutide 1 mg/dose (4 mg/3 mL) 1 mg subcut WEEKLY 07/22/25 07/22/25 History subcutaneous pen injector (Ozempic) Allergies Allergy/AdvReac Type Severity Reaction Status Date / Time theophylline (From Theolair) Allergy Anxiety Verified 07/22/25 10:59 adhesive tape AdvReac Intermediate Rash Verified 07/22/25 11:00 hydrocodone (From [place]) AdvReac Unknown nausea Verified 11/18/24 15:03 Exam Const: General: cooperative, healthy appearing and comfortable Nutritional Appearance: overweight Orientation/consciousness: oriented to person, oriented to place and oriented to time HENMT: Head: normal to inspection Resp: Effort & Inspection: normal respiratory effort Cardio: Rate: regular rate Rhythm: regular rhythm Heart sounds: S1 normal heart sound present and S2 normal heart sound present GI: Inspection: normal to inspection : External Female Exam: normal external appearance Speculum Exam - Vagina: normal appearance of the vagina Speculum Exam - Cervix: normal appearance of the cervix Bimanual exam- vagina & uterus: enlarged Bimanual Exam- Adnexa, other: normal adnexae Assessment and Plan Assessment and plan (1) High grade cervical glandular intraepithelial neoplasia: Code(s): D06.9 - Carcinoma in situ of cervix, unspecified Status: Acute (2) Postmenopausal bleeding: Code(s): N95.0 - Postmenopausal bleeding Status: Acute Plan Proceed with robotic total vaginal hysterectomy and bilateral salpingo-oophorectomy
[2025-07-31] VITALS (13 sets, daily range): BP systolic 115–142; BP diastolic 62–76; PULSE 68–95; RESP 10–16; TEMP 36.1–36.7; O2SAT 96–100; BMI 28.1
--- OUTSIDE RECORDS SUMMARY | 2025-07-31 02:38 | XMS_ITS | Clinical Summary ---
Author Organization [facility] Address [address] [place] [address] Care Team Providers Care Radioisotope Technician Name Role Phone Talha Meyers RN Primary [...] this topic Insurance [employer] [facility] [place] [address] Care Teams Radioisotope Technician Relationship Specialty Start Date End Date Talha Meyers, RN PCP - General REGISTERED NURSE 03/22/19
--- OUTSIDE RECORDS SUMMARY | 2025-07-31 02:38 | XMS_ITS ---
Author Organization Unknown Address [address] [place] [address] [phone] Phone Care Team Providers Care Operations Business Partner Name Role Phone PORFIRIO Talavera Attending Unavailable [...] Code System THEOPHYLLINE ANXIETY (SNOMED-CT: null) Active 15158 RxNorm HYDROCODONE NAUSEA (SNOMED-CT: null) Active 5489 RxNorm ADHESIVE RED, SWELLING, BLISTER (SNOMED-CT: null) Active Plan of Treatment No Data Found Encounters Encounter Diagnosis Start Date Code Code Sys tem Encounter for screening for malignant neoplasm of colo n 09/25/2024 SNOMED-CT Personal Care Team Section
[2025-07-31] MEDS: LACTATED RINGERS 1,000 ML 30 ML IV CONT ×2 (06:50→09:30)
--- NOTE | 2025-07-31 07:02 | WPDHPUPDATE1 ---
History and Physical Update Update Date/Time: 07/31/25 07:02 History and Physical has been reviewed, including an updated exam of the patient. There are NO changes in the patient's condition. Risks, benefits, and alternatives have been discussed and questions answered. Patient agrees to proceed with procedure.
--- NOTE | 2025-07-31 07:05 | WPDANESEPPF ---
Anes - Initial Pre Proc Eval Procedure: Operation Date: 07/31/25 07:30 Proposed Procedures p Robotic Assisted Total Vaginal Hysterectomy, Bilateral Salpingo Oophorectomy - Jose Corbett MD Date/Time: 07/31/25 07:05 Surgeon: Jose Corbett MD Pre Op Diagnosis: post menopausal bleeding,abn PAP Patient Data Age: 60 Gender: F Height: 1.7 m Weight: 78 kg Allergies Allergy/AdvReac Type Severity Reaction Status Date / Time theophylline (From Theolair) Allergy Anxiety Verified 07/22/25 10:59 adhesive tape AdvReac Intermediate Rash Verified 07/22/25 11:00 hydrocodone (From [place]) AdvReac Unknown nausea Verified 11/18/24 15:03 Home Medications ?Medication ?Instructions ?Recorded ?Confirmed ?Type acetaminophen 300 mg-codeine 15 mg 1 tablet PO TID PRN pain #14 tabs 02/16/21 07/22/25 Rx tablet lisinopril 20 1 tablet PO DAILY 02/16/21 07/22/25 History mg-hydrochlorothiazide 12.5 mg tablet metformin 500 mg tablet,extended 500 mg PO BID 02/16/21 07/22/25 History release 24 hr glipizide 10 mg tablet, extended 10 mg PO DAILY 11/18/24 07/22/25 History release 24 hr albuterol 90 mcg/actuation aerosol 90 mcg inhalation PRN PRN 01/09/25 07/22/25 History inhaler shortness of breath aspirin 81 mg tablet 81 mg PO DAILY 01/09/25 07/22/25 History atorvastatin 40 mg tablet 40 mg PO QHS 01/09/25 07/22/25 History fluconazole 40 mg/mL oral 50 mg PO PRN PRN SHINGLE OUTBREAK 01/09/25 07/22/25 History suspension (Diflucan) fluticasone furoate 27.5 2 spray intranasal DAILY 01/09/25 07/22/25 History mcg/actuation nasal spray,suspension metoprolol tartrate 50 mg tablet 50 mg PO QHS 01/09/25 07/22/25 History ondansetron HCl 8 mg tablet 8 mg PO Q12H 01/09/25 07/22/25 History valacyclovir 1 gram tablet 1,000 mg PO Q8H PRN BREAKOUT 01/09/25 07/22/25 History meloxicam 15 mg tablet See Rx Instructions .Route 01/15/25 07/22/25 Rx .COMPLEX #30 tabs lisinopril 10 mg tablet 10 mg PO HS 07/22/25 07/22/25 History semaglutide 1 mg/dose (4 mg/3 mL) 1 mg subcut WEEKLY 07/22/25 07/22/25 History subcutaneous pen injector (Ozempic) oxycodone-acetaminophen 5 mg-325 1 tablet PO Q4H PRN pain #14 tabs 07/31/25 Rx mg tablet (Percocet) Laboratory Tests 07/31/25 06:43 POC Capillary Glucose 235 H mg/dl (65-105) Patient hx anesthesia problems: none Family hx anesthesia problems: none Results Review: All pre-operative results and documents have been reviewed as part of the pre-operative evaluation. [facility] Past Medical History Medical History Right wrist sprain Claustrophobia Diabetes ZOË (obstructive sleep apnea) History of adverse reaction to anesthesia Avulsion fracture of left wrist Fracture of radial head, right, closed Patient denies medical problems Surgical History Surgical History History of abdominoplasty History of appendectomy History of tonsillectomy Family History Family History Other Arthritis Asthma Diabetes mellitus Heart disease Hypertension Social History Social History Smoking packs per day: 1 Smoking cigarettes per day: 20.0 Years smoked: 20 Smoking pack-years: 20.00 Smoking status: Former smoker Tobacco type: cigarettes Smoking end date: 03/28/97 Additional smoking assessment comments: QUIT 1996 Alcohol intake: current Alcohol use details: occasionally Substance use: never Substance use type: does not use Lack of Transportation: No Lack of Food: Never True Concerned About Future Housing: No Difficulty Paying Gas/Electric Bills: No Difficulty Paying for Meds: No Currently Unemployed: No Education: Trade/Vocational Certificate Difficulty w/ Childcare or Family Care: No Living arrangements: alone Gender identity (if verbalized by the patient): Female Anes - Eval Final PreProcedure Day of Procedure 07/31/25 07:05 Patient weight: overweight Heart: regular rate and rhythm Lungs: clear to auscultation Airway: Mallampati scale class II Neurological: alert and oriented Last oral intake: >/= 8 hours ASA classification: III Emergent: no Anesthetic plan: proceed Anesthesia type and monitoring: general ETT and standard monitoring Results Review: All pre-operative results and documents have been reviewed as part of the pre-operative evaluation. Informed Consent: The patient's anesthetic plan and its attendant risks and benefits were discussed with the patient/family/POA. Questions were solicited and answers provided to the satisfaction of the patient/family/POA.
[2025-07-31] MEDS: ACETAMINOPHEN 500 MG TABLET 1000 MG PO ×3 (07:20→19:26)
[2025-07-31] MEDS: KETOROLAC 15 MG/ML VIAL (*BKC) IV PUSH (07:20)
[2025-07-31] MEDS: ceFAZolin 2 GM in SODIUM CHLORIDE 0.9% IV 50 ML 100 ML IVPB (07:28)
--- NOTE | 2025-07-31 08:17 | S_PTH ---
PATIENT: Ramona Willett LOC: [facility] U#:[id number] AGE/SX: 60/F ROOM: RE07/31/[address]: Jose Corbett MD : [id number] BED: DIS: 08/01/2025 SPEC #: [id number] RECD: 07/31/25 09:05 STATUS: KEYLA RENel #: [id number] ARNOLD: 07/31/25 08:[address]: Jose Doshi DEPT: [facility] Surgical RECD BY: Katie Wells ENTERED: 07/31/25 09:05 SP TYPE: Surgical OTHR DR: Enriqueta Rosado, PUTTIER Tissues: A - Uterus Procedures: Hematoxylin and Eosin Stain Gross and Microscopic Level 5 CK 5 P16
--- NOTE | 2025-07-31 08:33 | W.PM.PROC2 ---
Procedure Note - Detailed Date of Procedure 07/31/25 Pre-op Diagnosis post menopausal bleeding,abn PAP Post-op Diagnosis Same Procedure Performed Robotic total vaginal hysterectomy and bilateral salpingo-oophorectomy Surgeon Jose Corbett MD Anesthesia General Indications 60-year-old female with negative biopsy findings and high-grade postmenopausal Findings Enlarged uterus. Normal-appearing ovaries and tubes. Description of Procedure Patient was prepped draped in normal sterile fashion placed in dorsal lithotomy position. Under excellent general trach anesthesia weighted speculum placed in posterior fornix vagina. Anterior lip of the cervix grasped with a single-tooth tenaculum. Uterus sounded to 10cm. Serial dilatation with fragmented dilators performed followed by passage of the 8. KIKI and the 3. 0.5 cold cup. Sixteen Thai catheter was then placed in bladder. Single-tooth and weighted speculum were removed and the gloves were changed. Supraumbilical incision Veress needle passed in the abdomen. Abdomen filled with CO2 gas [id number]. The 8mm trocar advanced in the abdomen. Downside visualized no injury seen. Patient placed in Trendelenburg and right left lateral quadrant incisions made. 8mm trocars advanced under direct visualization assuring no injury. A right upper quadrant incision made the 8mm trocar advanced under direct visualization the robot was docked. Attention was turned to the classification counselor. Left round ligament grasped, burned, cut. Anteriorly a bladder flap was formed by sharply dissecting the peritoneum and reflecting the bladder caudally away from the cervix uterus the opposite round ligament was clamped, burned, cut. Next the left infundibulopelvic structure was skeletonized it was quite vascular and this was serially clamped, burned, cut and brought to the level of previously cut round ligament. In similar fashion remove the right ovary and tube the infundibulopelvic structure was skeletonized on the right. This was clamped, burned, cut and brought to level of previous cut round ligament. The cardinal broad ligaments on the left were serially skeletonized clamping burning cutting and hugging the cervix and uterus until the large tortuous vessels could be seen on the left these were individually clamped, burned, cut. In similar fashion on the right the cardinal broad ligaments were serially skeletonized clamping burning cutting and bringing this down the lateral edge of the cervix and uterus until the uterine vessels could be seen on the right these were individually clamped, burned, cut. Blanching the uterus was noted and a colpotomy incision made. The vagina and incision then but had the uterus removed as well as the tubes and ovaries. The vagina was then closed with continuous running 0V lock from lateral edge to lateral edge back to the midline. Irrigation subcu at hemostasis was assured. The instruments withdrawn and the robot was undocked. The laps removed and sponges were all accounted for the incisions closed with 4-0 Monocryl and glue after the gas removed from the abdomen patient was awakened went to recovery in satisfactory condition. All sponge, needle, instrument counts were correct. QBL was 25cc Estimated Blood Loss 25 Drains No Packing No Pathology Yes Complications No immediate complications Condition Stable Disposition PACU
--- NOTE | 2025-07-31 08:37 | P.DS_ITS ---
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 She remained afebrile. She was up, voiding without difficulty eating regular, ambulating, and generally without complaints. Time Spent with Patient Time attestation: Total time spent providing and/or coordinating discharge services: Exam Const: General: cooperative, healthy appearing and comfortable Nutritional Appearance: average body habitus Orientation/consciousness: oriented to person, oriented to place and oriented to time Resp: Effort & Inspection: normal respiratory effort Cardio: Rate: regular rate Rhythm: regular rhythm Heart sounds: S1 normal heart sound present and S2 normal heart sound present GI: Inspection: normal to inspection and incision (Wounds are clean dry and intact) DS: Data Data Completed and Pending Pending studies at discharge: Pending at discharge 07/31/25 08:17 Surgical [PTH] Routine Labs on day of discharge: Labs from last 24 hours 07/31/25 06:43 POC Capillary Glucose 235 H Discharge Plan Discharge Patient Disposition: Home Patient Language: Kinyarwanda Stand Alone Forms: General Discharge Instructions Discharge Medications: New oxycodone-acetaminophen [Percocet] 5-325 mg tablet 1 tablet PO Q4H PRN (Reason: pain) Qty: 14 0RF No Action lisinopril-hydrochlorothiazide 20-12.5 mg tablet 1 tablet PO DAILY metformin 500 mg tablet extended release 24 hr 500 mg PO BID acetaminophen-codeine 300-15 mg tablet 1 tablet PO TID PRN (Reason: pain) Qty: 14 0RF atorvastatin 40 mg tablet 40 mg PO QHS metoprolol tartrate 50 mg tablet 50 mg PO QHS glipizide 10 mg tablet extended release 24hr 10 mg PO DAILY albuterol 90 mcg/actuation aerosol 90 mcg inhalation PRN PRN (Reason: shortness of breath) aspirin 81 mg tablet 81 mg PO DAILY fluticasone furoate 27.5 mcg/actuation spray,suspension 2 spray intranasal DAILY Rx Instructions: into each nostril valacyclovir 1 gram tablet 1,000 mg PO Q8H PRN (Reason: BREAKOUT) ondansetron HCl 8 mg tablet 8 mg PO Q12H fluconazole [Diflucan] 40 mg/mL suspension for reconstitution 50 mg PO PRN PRN (Reason: SHINGLE OUTBREAK) lisinopril 10 mg tablet 10 mg PO HS Ozempic 1 mg/dose (4 mg/3 mL) pen injector 1 mg subcut WEEKLY Patient Comments: TAKES ON MONDAYS meloxicam 15 mg tablet See Rx Instructions .ROUTE .COMPLEX Qty: 30 1RF Dose Instruction: TAKE 1 TABLET BY MOUTH EVERY DAY Rx Instructions: TAKE 1 TABLET BY MOUTH EVERY DAY
--- NOTE | 2025-07-31 09:02 | SUR.PHASEI ---
Dr. Tamayo notified of patients blood sugar of 212. No new orders received.
[2025-07-31] MEDS: fentaNYL CITRATE INJ (*CRX) 100 MCG/2 ML VIAL 25 MCG IV PUSH ×4 (09:28→09:34)
[2025-07-31] MEDS: ONDANSETRON INJ 4 MG/2 ML VIAL IV PUSH (09:31)
[2025-07-31] MEDS: diazePAM INJ (*CRX) 10 MG/2 ML SYRINGE 2.5 MG IV PUSH (09:50)
--- NOTE | 2025-07-31 10:24 | PC.NURSE ---
This patient, Ramona Willett, was received from [PACU per bed to room 288]. Patient/family oriented to unit policies and routines
[2025-07-31] MEDS: SIMETHICONE 80 MG TAB.CHEW PO ×2 (13:04→17:05)
[2025-07-31] MEDS: KETOROLAC 30 MG/ML VIAL (*BKC) IV PUSH ×2 (13:04→19:25)
[2025-07-31] MEDS: DOCUSATE SODIUM 100 MG CAPSULE PO (14:14)
[2025-07-31] MEDS: metFORMIN HCL XR 500 MG TAB.SR.24H PO (16:42)
[2025-07-31] MEDS: ATORVASTATIN 40 MG TABLET PO (21:12)
[2025-08-01] MEDS: ACETAMINOPHEN 500 MG TABLET 1000 MG PO ×2 (01:13→07:44)
[2025-08-01] MEDS: KETOROLAC 30 MG/ML VIAL (*BKC) IV PUSH (01:13)
[2025-08-01 04:05] VITALS: BP 131/67; PULSE 83; PULSE 87; RESP 15; RESP 16; TEMP 36.7; O2SAT 98; O2SAT 99
[2025-08-01 04:24] LABS: Hematocrit 33.4 % (37.0-47.0); Hemoglobin 10.9 g/dL (12.0-15.0); Immature Granulocyte Percent A 0.6 % (0-0.5); Lymphocytes Absolute Auto 1.36 K/mm3 (0.9-3.2); Mean Corpuscular HGB Conc 32.6 g/dl (32-36); Mean Corpuscular Hemoglobin 27.7 pg (26-34); Mean Corpuscular Volume 84.8 fl (80-100); Nucleated Red Blood Cells Absolute Auto 0.000 K/mm3 (0.0-0.012); Nucleated Red Blood Cells Perc 0.0 % (0.0-0.2); Platelet Count Result 204 k/mm3 (150-375); Red Blood Count 3.94 M/mm3 (4.2-5.4); White Blood Count 11.7 K/mm3 (4.5-10.0)
--- NOTE | 2025-08-01 06:52 | PM.GYNPNOP ---
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 - Carcinoma in situ of cervix, unspecified Status: Acute (2) Postmenopausal bleeding: Code(s): N95.0 - Postmenopausal bleeding Status: Acute Plan home Postoperative Procedures: Procedures Operation Date: 07/31/25 07:30 Actual Procedure Side Surgeon p Robotic Assisted Total Vaginal Hysterectomy, Bilateral Salpingo Oophorectomy Bilateral Jose Corbett MD Time Spent With Patient Time: Total time spent is greater than 50% in coordination of care (as documented) at patient's floor/unit and/or counseling patient: Time with patient: 15 - 25 minutes RECREATION FACILITY ATTENDANT- PN:Subj Post-Op Subjective Date/time seen: 08/01/25 06:52 Subjective: patient reports feeling better, patient has no complaints, patient desires discharge, pain is well controlled and patient is tolerating oral intake Review of Systems Review of Systems: All systems reviewed & are unremarkable except as noted in HPI and below Exam Const: General: cooperative, healthy appearing and comfortable Nutritional Appearance: average body habitus Orientation/consciousness: oriented to person, oriented to place and oriented to time Resp: Effort & Inspection: normal respiratory effort Cardio: Rate: regular rate Rhythm: regular rhythm Heart sounds: S1 normal heart sound present and S2 normal heart sound present GI: Inspection: normal to inspection and incision (Wounds are clean dry and intact) RECREATION FACILITY ATTENDANT - PN: Obj Data Vital Signs Vital Signs: Vital Signs - 24 hr 07/31/25 08:52 07/31/25 09:00 07/31/25 09:15 Temperature 97.1 F L Pulse Rate 78 78 79 Respiratory Rate 11 L 12 13 Blood Pressure 117/71 124/67 125/65 Pulse Oximetry 100 100 100 Oxygen Delivery Simple Face Mask Room Air Room Air Oxygen Flow Rate 8 07/31/25 09:30 07/31/25 09:45 07/31/25 10:00 Temperature Pulse Rate 73 71 73 Respiratory Rate 13 10 L 13 Blood Pressure 127/65 136/68 127/68 Pulse Oximetry 100 99 97 Oxygen Delivery Room Air Room Air Room Air Oxygen Flow Rate 07/31/25 10:15 07/31/25 10:25 07/31/25 14:10 Temperature 97.5 F L 98.1 F Pulse Rate 68 74 95 Respiratory Rate 14 16 16 Blood Pressure 128/67 142/76 H 124/72 Pulse Oximetry 96 100 98 Oxygen Delivery Room Air Oxygen Flow Rate 07/31/25 19:25 07/31/25 19:25 07/31/25 21:12 Temperature 98.1 F Pulse Rate 88 88 88 Respiratory Rate 16 16 Blood Pressure 127/71 Pulse Oximetry 99 99 Oxygen Delivery Room Air Oxygen Flow Rate 07/31/25 23:15 07/31/25 23:15 08/01/25 04:05 Temperature 97.7 F 98.1 F Pulse Rate 87 87 83 Respiratory Rate 16 16 15 Blood Pressure 115/69 131/67 Pulse Oximetry 98 98 99 Oxygen Delivery Room Air Oxygen Flow Rate 08/01/25 04:05 Temperature Pulse Rate 87 Respiratory Rate 16 Blood Pressure Pulse Oximetry 98 Oxygen Delivery Room Air Oxygen Flow Rate Intake/Output Intake/Output: Intake & Output 07/29/25 07/30/25 07/31/25 08/01/25 23:59 23:59 23:59 23:59 Intake Total 1740 Output Total 750 1050 Balance 990 -1050 Meds/Results Medications: Active Medications Generic Name Dose Route Start Last Admin Trade Name Freq PRN Reason Stop Dose Admin Acetaminophen 1,000 mg 07/31/25 12:00 08/01/25 01:13 Acetaminophen 500 Mg Tablet PO 1,000 mg Q6HR KENNEY Administration Atorvastatin Calcium 40 mg 07/31/25 21:00 07/31/25 21:12 Atorvastatin 40 Mg Tablet PO 40 mg QHS KENNEY Administration Docusate Sodium 100 mg 07/31/25 10:18 07/31/25 14:14 Docusate Sodium 100 Mg Capsule PO 100 mg BID KENNEY Administration Enoxaparin Sodium 40 mg 07/31/25 10:18 07/31/25 12:40 Enoxaparin 40 Mg/0.4 Ml Syringe SUB-Q Not Given DAILY KENNEY Ibuprofen 600 mg 08/01/25 06:00 Ibuprofen 600 Mg Tablet PO Q6HR KENNEY Lisinopril 10 mg 07/31/25 21:00 07/31/25 21:12 Lisinopril 10 Mg Tablet PO Not Given HS KENNEY Metformin HCl 500 mg 07/31/25 17:00 07/31/25 16:42 Metformin Hcl Xr 500 Mg Tab.Sr.24h PO 500 mg BID KENNEY Administration Metoprolol Tartrate 50 mg 07/31/25 21:00 07/31/25 21:12 Metoprolol Tartrate 50 Mg Tab PO Not Given QHS [facility] Naloxone HCl 0.1 mg 07/31/25 10:18 Naloxone Hcl 0.4 Mg/Ml Vial IV PUSH Q2M PRN Respiratory rate less than 10 Ondansetron HCl 4 mg 07/31/25 10:18 Ondansetron Inj 4 Mg/2 Ml Vial IV PUSH Q6H PRN Nausea And Vomiting Oxycodone/Acetaminophen 1 tablet 07/31/25 08:32 Oxycodone/Acetaminophen (*Crx) 5-325 Mg Tablet PO Q4H PRN Pain Rated 7-10 Simethicone 80 mg 07/31/25 12:00 07/31/25 17:05 Simethicone 80 Mg Tab.Chew PO 80 mg TIDWM KENNEY Administration Labs 08/01/25 04:06 Labs: Laboratory Results - last 24 hr 07/31/25 08/01/25 08:56 04:06 WBC 11.7 H RBC 3.94 L Hgb 10.9 L Hct 33.4 L MCV 84.8 MCH 27.7 MCHC 32.6 RDW 13.3 Plt Count 204 MPV 9.3 Immature Gran % (Auto) 0.6 H Neut % (Auto) 78.1 H Lymph % (Auto) 11.6 L [place] % (Auto) 9.1 H Eos % (Auto) 0.4 Baso % (Auto) 0.2 Lymph # (Auto) 1.36 [place] # (Auto) 1.1 H Eos # (Auto) 0.1 Baso # (Auto) 0.0 Abs Immat Gran (auto) 0.07 H Absolute Neuts (auto) 9.2 H Absolute Nucleated RBC 0.000 Nucleated RBC % 0.0 POC Capillary Glucose 212 H
[2025-08-01] MEDS: SIMETHICONE 80 MG TAB.CHEW PO (07:44)
[2025-08-01] MEDS: IBUPROFEN 600 MG TABLET PO (07:44)
[2025-08-01] MEDS: DOCUSATE SODIUM 100 MG CAPSULE PO (07:44)
[2025-08-01] MEDS: metFORMIN HCL XR 500 MG TAB.SR.24H PO (07:44)
[2025-08-01] MEDS: ENOXAPARIN 40 MG/0.4 ML SYRINGE SUB-Q (07:44)
[2025-08-01 07:45] VITALS: BP 117/62; PULSE 93; RESP 18; TEMP 36.4; O2SAT 100
== END 2025-08-01 09:52 | disposition home or self-care (01) ==
LOC: ANHSURGERY 07:02 → ANHOB2 10:29
PROVIDERS: PCP Nurse Practitioner Family; Visit Provider Obstetrics & Gynecology
PROC: (CPT 58552; principal; 2025-07-31 07:30)
DX: D06.1 Carcinoma in situ of exocervix (principal); N80.03 Adenomyosis of the uterus; D27.0 Benign neoplasm of right ovary; D25.9 Leiomyoma of uterus, unspecified; F40.240 Claustrophobia; E11.9 Type 2 diabetes mellitus without complications; G47.33 Obstructive sleep apnea (adult) (pediatric); Z79.84 Long term (current) use of oral hypoglycemic drugs; Z79.51 Long term (current) use of inhaled steroids; Z79.82 Long term (current) use of aspirin; Z79.891 Long term (current) use of opiate analgesic; Z79.85 Long-term (current) use of injectable non-insulin antidiabetic drugs; Z98.890 Other specified postprocedural states; Z87.891 Personal history of nicotine dependence; Z82.49 Family history of ischemic heart disease and other diseases of the circulatory system
CPT/HCPCS: 58552; S2900; 36415; 82948; 85025; 88307; 88342; 99199; J0690; A9270; J1100; J1171; J1650; J1885; J2003; J2250; J2405; J2704; J3010; J3360; J7030; J7120